=== PATIENT | female | born 1960 | race Caucasian/White ===

== ENCOUNTER 2019-08-19 20:24 | Emergency (ER) | payer MEDICAID, OTHER ==
[~2019-08-19] VITALS: Ht 149.9 cm; Wt 81.6 kg
[2019-08-19 20:34] VITALS: BP 104/57
--- NOTE | 2019-08-19 20:35 | NUR ---
PT 59 Y/O FEMALE BIB SELF FOR C/O 11/10 [place] SUBSTERNAL CHEST PAIN LASTING X 1 HOUR. PT STATES SHE WAS D/C FROM [place] X 5 DAYS AGO FOR CHEST PAIN. 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 PT STATES PAIN IS NON RADIATING. DENIES N/V/D. DENIES FEELINGS OF DIZZYNESS. PT STATES SHE STARTED NEW B/P MEDICATION TODAY AT 1500- METROPOLOL 25 MG DAILY. PT ADMITS TO HX OF SMOKING "FOR MANY YEARS." PT STATES SHE QUIT RECENTLY AND USED TO SMOKE 6 CIGARETTES A DAY. PT PLACED ON 2L NC O2. O2SAT @ 98%. RESPIRATIONS ARE EVEN AND UNLABORED. ADMITS TO SKIN IS WARM AND DRY TO TOUCH. VSS. PT ON MONITOR. BED LOCKED AND IN LOWEST POSITION.
--- NOTE | 2019-08-19 20:40 | NUR ---
PT EKG DONE AT BEDSIDE.
--- NOTE | 2019-08-19 20:55 | NUR ---
PT UA COLLECTED.
--- NOTE | 2019-08-19 21:40 | NUR ---
PT LAYING IN BED. NSR. VSS. RESP EVEN AND UNLABORED. EYES OPENING SPONTANEOUSLY.
[2019-08-19] MEDS ORDERED: LORazepam 1 MG TAB PO ONE (22:00)
--- NOTE | 2019-08-19 22:04 | NUR ---
ATIVAN 1 MG PO GIVEN.
--- NOTE | 2019-08-19 22:10 | NUR ---
PT AMBULATED TO RESTROOM
[2019-08-19 22:50] VITALS: BP 96/59
--- NOTE | 2019-08-19 22:50 | NUR ---
ASSISTING PRIMARY NURSE WITH DISCHARGE. PT APPEARS TO BE IN NO DISTRESS. Patient discharged with v/s stable. Written and verbal after care instructions given and explained. Patient alert, oriented and verbalized understanding of instructions. Ambulatory with steady gait. All questions addressed prior to discharge. ID band removed. Patient advised to follow up with PMD. Rx of BENADRYL given. Patient educated on indication of medication including possible reaction and side effects. Opportunity to ask questions provided and answered.
== END 2019-08-19 22:50 | disposition home or self-care (01) ==
LOC: MED 20:24
DX: R52 Pain, unspecified (principal); R06.00 Dyspnea, unspecified; Z98.890 Other specified postprocedural states
CPT/HCPCS: 93005; 99283

== ENCOUNTER 2020-08-14 12:49 | Emergency (ER) | payer MEDICAID, OTHER ==
[~2020-08-14] VITALS: Ht 149.9 cm; Wt 90.3 kg
[2020-08-14 12:56] VITALS: BP 99/66
--- NOTE | 2020-08-14 13:00 | NUR ---
AMBULATED TO BED 9
--- NOTE | 2020-08-14 13:09 | NUR ---
60 YO F BIB SELF FOR C/C OF PRODUCTIVE COUGH WITH CLEAR SPUTUM X1 MONTH. PT DENIES PAIN ANYWHERE, DENIES FEVER/CHILLS. PT STATES THIS BEGAN AFTER RECIEVING SECOND COVID VACCINE ON 07/22/20. LUNG SOUNDS CLEAR THROUGHOUT. S1S2 HEARD. PT ALSO REPORTS QUITTING CIGARETTES LAST YEAR. BED LOCKED AND IN LOWEST POSITION, SIDE RAILS X1.
[2020-08-14] MEDS ORDERED: ALBU6.7H IH (14:47)
[2020-08-14 15:13] VITALS: BP 99/66
== END 2020-08-14 15:13 | disposition home or self-care (01) ==
LOC: MED 12:49
DX: J20.9 Acute bronchitis, unspecified (principal); I11.9 Hypertensive heart disease without heart failure; F17.210 Nicotine dependence, cigarettes, uncomplicated; Z71.6 Tobacco abuse counseling
CPT/HCPCS: 71045; 99283